=== PATIENT | female | born 1990 | race Caucasian/White ===

== ENCOUNTER → 2016-12-17 | Outpatient (REF) | payer OTHER, SELFPAY ==
[~2016-12-17] MED LIST: ALBU17IN INH; BREO1INH3 INH; VITA100067 PO
== END ==
LOC: M LAB REF 10:12
PROVIDERS: ATTEND Physician Assistant
DX: N39.0 Urinary tract infection, site not specified (principal)

== ENCOUNTER → 2017-05-03 | Outpatient (CLI) | payer BC ==
[2017-05-03 13:27] LABS: ALBUMIN 3.6 GM/DL (3.2-5.2); ALKALINE PHOSPHATASE 99 U/L (45-117); ALT/SGPT 41 U/L (12-78); AMYLASE 51 U/L (25-115); ANION GAP 11 MEQ/L (8-16); AST/SGOT 27 U/L (15-37); BILIRUBIN,TOTAL 0.3 MG/DL (0.2-1.0); BLOOD UREA NITROGEN 11 MG/DL (7-18); CALCIUM LEVEL 8.6 MG/DL (8.5-10.1); CARBON DIOXIDE LEVEL 23 MEQ/L (21-32); CHLORIDE LEVEL 107 MEQ/L (98-107); CREATININE FOR GFR 0.71 MG/DL (0.55-1.02); GLOMERULAR FILTRATION RATE > 60.0 (>60); GLUCOSE, FASTING 82 MG/DL (70-105); POTASSIUM SERUM 4.4 MEQ/L (3.5-5.1); SODIUM LEVEL 141 MEQ/L (136-145); TOTAL PROTEIN 7.2 GM/DL (6.4-8.2)
[2017-05-03 13:56] LABS: ADD MANUAL DIFFER YES; MEAN CORPUSCULAR HEMOGLOBIN 24.2 pg (27.0-33.0); MEAN CORPUSCULAR HGB CONC 31.6 g/dl (32.0-36.5); MEAN CORPUSCULAR VOLUME 76.6 fl (80.0-96.0); PLATELET COUNT, AUTOMATED 335 k/mm3 (150-450); RED CELL DISTRIBUTION WIDTH 15.6 % (11.5-14.5); WHITE BLOOD COUNT 4.9 K/mm3 (4.0-10.0)
[2017-05-03 14:23] LABS: ANISOCYTOSIS 1+; BASOPHILS 1 % (0-4); EOSINOPHILS 5 % (0-5)
== END ==
LOC: M SMT 09:27
PROVIDERS: ATTEND Physician Assistant Medical
DX: Z13.29 Encounter for screening for other suspected endocrine disorder (principal); R53.82 Chronic fatigue, unspecified; R10.13 Epigastric pain

== ENCOUNTER → 2017-05-24 | Outpatient (REF) | payer BC | LOC: M LAB REF 16:05 | PROVIDERS: ATTEND Family Medicine | DX: D48.5 Neoplasm of uncertain behavior of skin (principal) ==

== ENCOUNTER → 2017-09-30 | Outpatient (CLI) | payer BC ==
[2017-09-30 18:17] LABS: HCG, SERUM QUANTITATIVE 2660 MIU/ML
== END ==
LOC: M LAB 16:40
DX: O20.0 Threatened abortion (principal); Z3A.00 Weeks of gestation of pregnancy not specified
CPT/HCPCS: 84702

== ENCOUNTER → 2017-10-02 | Outpatient (CLI) | payer BC ==
[2017-10-02 18:47] LABS: HCG, SERUM QUANTITATIVE 5056 MIU/ML
== END ==
LOC: M LAB 16:20
DX: O20.0 Threatened abortion (principal)

== ENCOUNTER → 2017-10-19 | Outpatient (REF) | payer BC ==
[2017-10-19 18:29] LABS: INFLUENZA A AMPLIFICATION NEGATIVE (NEGATIVE); INFLUENZA B AMPLIFICATION POSITIVE (NEGATIVE)
== END ==
LOC: M LAB REF 17:22
DX: J11.1 Influenza due to unidentified influenza virus with other respiratory manifestations (principal)

== ENCOUNTER → 2017-10-23 | Outpatient (CLI) | payer BC ==
[2017-10-23 18:05] LABS: EOS # 0.1 10^3/uL (0.0-0.50); EOS % 1.6 % (0.0-3.0); HEMATOCRIT 42.9 % (36.0-47.0); IMMATURE GRANULOCYTE % 0.3 % (0-3.0); LYMPH # 1.1 10^3/uL (1.5-6.5); LYMPH % 28.4 % (24.0-44.0); MEAN CORPUSCULAR HEMOGLOBIN 26.7 pg (27.0-33.0); MEAN CORPUSCULAR HGB CONC 32.6 g/dl (32.0-36.5); MEAN CORPUSCULAR VOLUME 81.7 fl (80.0-96.0); MONO # 0.3 10^3/uL (0.0-0.8); NEUTROPHILS # 2.4 10^3/uL (1.8-7.7); NEUTROPHILS % 62.7 % (36.0-66.0); PLATELET COUNT, AUTOMATED 322 10^3/uL (150-450); RED BLOOD COUNT 5.25 10^6/uL (4.00-5.40); RED CELL DISTRIBUTION WIDTH 13.1 % (11.5-14.5); WHITE BLOOD COUNT 3.8 10^3/uL (4.0-10.0)
[2017-10-23 23:22] LABS: CHLAMYDIA DNA AMPLIFICATION NEGATIVE (NEGATIVE); GC DNA AMPLIFICATION NEGATIVE (NEGATIVE)
[2017-10-25 10:35] LABS: HBsAg Prenatal NEGATIVE (NEGATIVE)
[2017-10-25 10:58] LABS: HEPATITIS C VIRUS ABY INDEX 0.1 INDEX (<0.8)
[2017-10-25 10:59] LABS: HIV 1&2 SCREEN CENTAUR NEGATIVE (NEGATIVE)
[2017-10-25 12:14] LABS: RUBELLA IgG QUALITATIVE IMMUNE (IMMUNE)
== END ==
LOC: M SMT 13:53
DX: Z34.81 Encounter for supervision of other normal pregnancy, first trimester (principal); Z3A.08 8 weeks gestation of pregnancy
CPT/HCPCS: 86762

== ENCOUNTER → 2018-01-08 | Outpatient (CLI) | payer BC | LOC: M RAD 11:52 | DX: Z34.82 Encounter for supervision of other normal pregnancy, second trimester (principal) | CPT/HCPCS: 76811 ==

== ENCOUNTER → 2018-02-21 | Outpatient (CLI) | payer BC ==
[2018-02-21 17:13] LABS: HEMATOCRIT 36.8 % (36.0-47.0); HEMOGLOBIN 11.9 g/dl (12.0-15.5); MEAN CORPUSCULAR HEMOGLOBIN 27.9 pg (27.0-33.0); MEAN CORPUSCULAR HGB CONC 32.3 g/dl (32.0-36.5); MEAN CORPUSCULAR VOLUME 86.2 fl (80.0-96.0); PLATELET COUNT, AUTOMATED 302 10^3/uL (150-450); RED BLOOD COUNT 4.27 10^6/uL (4.00-5.40); RED CELL DISTRIBUTION WIDTH 13.7 % (11.5-14.5)
[2018-02-21 17:30] LABS: GLUCOSE CHALLENGE TEST 1 HOUR 119 MG/DL (LESS THAN 140)
[2018-02-24 08:45] LABS: ANTIBODY IDENTIFICATION 1 1
== END ==
LOC: M SMT 13:31
DX: Z34.82 Encounter for supervision of other normal pregnancy, second trimester (principal)
CPT/HCPCS: 82950

== ENCOUNTER → 2018-05-02 | Outpatient (REF) | payer BC, MEDICAID | LOC: M LAB REF 17:08 | DX: Z34.83 Encounter for supervision of other normal pregnancy, third trimester (principal); Z36.85 Encounter for antenatal screening for Streptococcus B | CPT/HCPCS: 87081 ==

== ENCOUNTER → 2018-05-13 | Outpatient (CLI) | payer MEDICAID | LOC: M SMT 09:09 | DX: O36 Maternal care for other fetal problems (principal); Z3A.37 37 weeks gestation of pregnancy | CPT/HCPCS: 36415 ==

== ENCOUNTER 2018-06-03 09:04 | Inpatient (IN) | payer OTHER, MEDICAID ==
[2018-06-03 11:58] LABS: HEMATOCRIT 37.2 % (36.0-47.0); HEMOGLOBIN 12.4 g/dl (12.0-15.5); MEAN CORPUSCULAR HEMOGLOBIN 27.6 pg (27.0-33.0); MEAN CORPUSCULAR HGB CONC 33.3 g/dl (32.0-36.5); MEAN CORPUSCULAR VOLUME 82.7 fl (80.0-96.0); PLATELET COUNT, AUTOMATED 285 10^3/uL (150-450); RED CELL DISTRIBUTION WIDTH 14.3 % (11.5-14.5); WHITE BLOOD COUNT 11.4 10^3/uL (4.0-10.0)
[2018-06-03] MEDS: LR 1,000 ML IV ×4 (12:33→21:34)
[2018-06-03] MEDS: OXYTOCIN DRIP 30 UNITS in APPROPRIATE DILUENT 1 EA IV (12:33)
[2018-06-03] MEDS ORDERED: FENTANYL 2MCG/ML ROPIVACAINE 0.2% IN 0.9% NACL 200ML IVBAG As Ordered (19:38)
[2018-06-03] MEDS ORDERED: EPIDURAL/PCA KEYS XX (21:00)
[2018-06-03] MEDS ORDERED: FENTANYL/ROPIVACAINE/NACL BAG 200 ML EPIDURAL (21:00)
[2018-06-03] MEDS ORDERED: EPIDURAL COMMENT XX (21:00)
[2018-06-03] MEDS ORDERED: ePHEDrine SULFATE 25 MG/5 ML(5MG/ML) SYRINGE IV (21:00)
[2018-06-03] MEDS ORDERED: NALOXONE INJ 0.4 MG/1 ML VIAL (J2310) IV (21:00)
[2018-06-03] MEDS ORDERED: ONDANSETRON 4MG/2ML VIAL (J2405) IV (21:00)
[2018-06-03] MEDS ORDERED: diphenhydrAMINE INJ 50MG/ML VIAL (J1200) IV (21:00)
[2018-06-03] MEDS ORDERED: REFRIGERATOR IV KEYS XX (21:00)
[2018-06-04] MEDS ORDERED: DOCUSATE SODIUM 100 MG CAP PO (07:30)
[2018-06-04] MEDS ORDERED: MEASLES,MUMPS,RUBELLA VACCINE INJ (MMR-II) (90707) SC (07:30)
[2018-06-04] MEDS ORDERED: MOM 30ML SUSPENSION UDC PO (07:30)
[2018-06-04] MEDS ORDERED: METHYLERGONOVINE MALEATE 0.2 MG TAB PO (07:30)
[2018-06-04] MEDS ORDERED: IBUPROFEN 800 MG TAB PO (07:30)
[2018-06-04] MEDS ORDERED: RHOGAM 300 MCG (1500 IU) INJ (J2790) IM (07:30)
[2018-06-04] MEDS ORDERED: DIBUCAINE 1% OINTMENT 30GM TOP (07:30)
[2018-06-04] MEDS: OXYTOCIN DRIP 30 UNITS in APPROPRIATE DILUENT 1 EA IV (07:49)
[2018-06-04] MEDS: ACETAMINOPHEN 500 MG TAB PO ×2 (08:03→21:46)
[2018-06-04] MEDS: PRENATAL VITAMINS CHEWABLE TABLET PO (08:03)
[2018-06-05] MEDS: PRENATAL VITAMINS CHEWABLE TABLET PO (09:52)
== END 2018-06-05 11:45 | disposition home or self-care (01) | DRG 560 ==
LOC: M LDO 09:04 → M OBS 06-04 03:03 → M LDI 10:42
PROVIDERS: Obstetrics & Gynecology
PROC: 3E033VJ Introduction of Other Hormone into Peripheral Vein, Percutaneous Approach (ICD-10-PCS; 2018-06-03)
PROC: 10E0XZZ Delivery of Products of Conception, External Approach (ICD-10-PCS; principal; 2018-06-04)
PROC: 0HQ9XZZ Repair Perineum Skin, External Approach (ICD-10-PCS; 2018-06-04)
DX: O48.0 Post-term pregnancy (principal); J45.909 Unspecified asthma, uncomplicated; Z37.0 Single live birth; Z3A.40 40 weeks gestation of pregnancy; O99.52 Diseases of the respiratory system complicating childbirth; Z91.040 Latex allergy status; Z91.018 Allergy to other foods; Z91.010 Allergy to peanuts; O70.0 First degree perineal laceration during delivery

== ENCOUNTER → 2018-12-12 | Outpatient (REF) | payer OTHER ==
[~2018-12-12] MED LIST changes: +ADV250INH INH; +FERR325T3 PO; +IBUP-1114 PO; +MAPA500T2 PO; +PRENTAB9 PO; +VITA200015 PO
== END ==
LOC: M LAB REF 08:48
PROVIDERS: ATTEND Physician Assistant
DX: D48.5 Neoplasm of uncertain behavior of skin (principal)

== ENCOUNTER → 2019-03-01 | Outpatient (REF) | payer OTHER | LOC: M LAB REF 09:54 | PROVIDERS: ATTEND Physician Assistant Medical | DX: B02.9 Zoster without complications (principal) ==

== ENCOUNTER 2019-08-26 19:19 | Emergency (ER) | payer BC, OTHER ==
[~2019-08-26] VITALS: Ht 170.2 cm; Wt 99.5 kg
[2019-08-26] MEDS ORDERED: FLUO20TA35 PO (19:27)
[2019-08-26] MEDS ORDERED: SYMB16INH INH (19:27)
[2019-08-26] MEDS ORDERED: NS 1,000 ML IV ONE (20:15)
[2019-08-26] MEDS ORDERED: PANTOPRAZOLE 40MG INJ (PROTONIX) (C9113) IV ONE (20:15)
[2019-08-26] MEDS ORDERED: ONDANSETRON 4MG/2ML VIAL (J2405) IV ONE (20:15)
[2019-08-26 20:29] LABS: BASO % 0.4 % (0.0-1.0); EOS # 0.7 10^3/uL (0.0-0.5); EOS % 9.2 % (0.0-3.0); HEMATOCRIT 40.7 % (36.0-47.0); HEMOGLOBIN 12.8 g/dl (12.0-15.5); LYMPH # 1.4 10^3/uL (1.5-5.0); MEAN CORPUSCULAR HEMOGLOBIN 25.5 pg (27.0-33.0); MEAN CORPUSCULAR HGB CONC 31.4 g/dl (32.0-36.5); MEAN CORPUSCULAR VOLUME 81.1 fl (80.0-96.0); MONO # 0.5 10^3/uL (0.0-0.8); MONO % 6.1 % (0.0-5.0); NEUTROPHILS # 4.8 10^3/uL (1.5-8.5); PLATELET COUNT, AUTOMATED 381 10^3/uL (150-450); RED BLOOD COUNT 5.02 10^6/uL (4.00-5.40); WHITE BLOOD COUNT 7.4 10^3/uL (4.0-10.0)
[2019-08-26 20:58] LABS: ALBUMIN 3.4 GM/DL (3.2-5.2); ALT/SGPT 50 U/L (12-78); BILIRUBIN,DIRECT 0.1 MG/DL (0.0-0.2); BILIRUBIN,TOTAL 0.3 MG/DL (0.2-1.0); BLOOD UREA NITROGEN 10 MG/DL (7-18); CALCIUM LEVEL 8.8 MG/DL (8.5-10.1); CARBON DIOXIDE LEVEL 25 MEQ/L (21-32); CHLORIDE LEVEL 108 MEQ/L (98-107); CREATININE FOR GFR 0.71 MG/DL (0.55-1.30); GLOMERULAR FILTRATION RATE > 60.0 (>60); GLUCOSE, FASTING 113 MG/DL (70-100); LIPASE 426 U/L (73-393); SODIUM LEVEL 140 MEQ/L (136-145); TOTAL PROTEIN 6.9 GM/DL (6.4-8.2)
--- NOTE | 2019-08-26 22:49 | REPVR ---
PROCEDURE INFORMATION: Exam: US Abdomen Limited, Right Upper Quadrant Exam date and time: 08/26/2019 10:10 PM Age: 29 years old Clinical indication: Abdominal pain; Additional info: Ruq/epigastric pain TECHNIQUE: Imaging protocol: Real-time ultrasound of the abdomen with image documentation. Examination was focused on the right upper quadrant. COMPARISON: No relevant prior studies available. FINDINGS: Liver: Increased hepatic parenchymal echogenicity with no appreciable mass in the imaged portions of the liver. Gallbladder: No cholelithiasis. No gallbladder wall thickening or pericholecystic fluid. No sonographic Malik's sign. Common bile duct: The common bile duct measures 3 mm. Pancreas: The imaged pancreas is unremarkable. Right kidney: The right kidney measures 11 cm. No hydronephrosis. IMPRESSION: 1. No cholelithiasis or evidence of cholecystitis. 2. Echogenic hepatic parenchyma likely representing steatosis, versus fibrosis or hepatitis. Electronically signed by: Ashish Senior On 08/26/2019 22:48:53 PM
[2019-08-26] MEDS ORDERED: CARA1TAB6 PO (23:19)
[2019-08-26] MEDS ORDERED: PROT1TAB2 PO (23:19)
[2019-08-26 23:25] VITALS: BP 123/74
[2019-08-26] MEDS ORDERED: SUCRALFATE 1 GM TAB PO ONE (23:30)
[2019-08-26] MEDS ORDERED: KETOROLAC 30 MG/ML VIAL (J1885) IV ONE (23:30)
== END 2019-08-26 23:45 | disposition home or self-care (01) ==
LOC: M ED 19:19
DX: R10.13 Epigastric pain (principal); K29.70 Gastritis, unspecified, without bleeding; R93.2 Abnormal findings on diagnostic imaging of liver and biliary tract; M54.5 Low back pain; Z91.018 Allergy to other foods; Z91.040 Latex allergy status; Z79.51 Long term (current) use of inhaled steroids; Z79.899 Other long term (current) drug therapy
CPT/HCPCS: 76705; 80048; 80076; 83690; 84702; 85025; 96361; 96374; 96375; 99284; C9113; J1885; J2405

== ENCOUNTER → 2020-01-13 | Outpatient (REF) | payer BC ==
[~2020-01-13] MED LIST changes: +CARA1TAB6 PO; +FLUO20TA35 PO; +PROT1TAB2 PO; +SYMB16INH INH
== END ==
LOC: M LAB REF 17:20
PROVIDERS: ATTEND Family Medicine
DX: D22.5 Melanocytic nevi of trunk (principal)

== ENCOUNTER → 2020-01-25 | Outpatient (REF) | payer BC | LOC: M LAB REF 08:27 | PROVIDERS: ATTEND Family Medicine | DX: D22.5 Melanocytic nevi of trunk (principal) ==

== ENCOUNTER → 2021-05-15 | Outpatient (CLI) | payer BC ==
[2021-05-15 15:58] LABS: BASO # 0.1 10^3/uL (0.0-0.2); EOS # 1.2 10^3/uL (0.0-0.5); EOS % 18.6 % (0.0-3.0); HEMATOCRIT 39.8 % (36.0-47.0); HEMOGLOBIN 12.7 g/dl (12.0-15.5); LYMPH # 1.9 10^3/uL (1.5-5.0); LYMPH % 30.7 % (24.0-44.0); MEAN CORPUSCULAR HEMOGLOBIN 25.9 pg (27.0-33.0); MEAN CORPUSCULAR HGB CONC 31.9 g/dl (32.0-36.5); MEAN CORPUSCULAR VOLUME 81.1 fl (80.0-96.0); MONO # 0.6 10^3/uL (0.0-0.8); MONO % 9.5 % (2.0-8.0); NEUTROPHILS # 2.5 10^3/uL (1.5-8.5); NEUTROPHILS % 39.9 % (36.0-66.0); PLATELET COUNT, AUTOMATED 394 10^3/uL (150-450); RED BLOOD COUNT 4.91 10^6/uL (4.00-5.40); WHITE BLOOD COUNT 6.2 10^3/uL (4.0-10.0)
[2021-05-15 16:12] LABS: HEMOGLOBIN A1c 5.2 %
[2021-05-15 16:30] LABS: ALBUMIN 3.5 GM/DL (3.2-5.2); ALT/SGPT 66 U/L (12-78); BILIRUBIN,TOTAL 0.9 MG/DL (0.2-1.0); BLOOD UREA NITROGEN 10 MG/DL (7-18); CALCIUM LEVEL 8.9 MG/DL (8.5-10.1); CARBON DIOXIDE LEVEL 25 MEQ/L (21-32); CHLORIDE LEVEL 106 MEQ/L (98-107); FREE T4 1.18 NG/DL (0.76-1.46); GLOMERULAR FILTRATION RATE > 60.0 (>60); GLUCOSE, FASTING 77 MG/DL (70-100); POTASSIUM SERUM 4.2 MEQ/L (3.5-5.1); SODIUM LEVEL 139 MEQ/L (136-145); TOTAL 25(OH) VITAMIN D 23.2 NG/ML (30.0-100.0); TOTAL PROTEIN 7.2 GM/DL (6.4-8.2)
== END ==
LOC: M PLALAB 12:16
PROVIDERS: ATTEND Family Medicine
DX: Z13.29 Encounter for screening for other suspected endocrine disorder (principal)

== ENCOUNTER → 2022-04-09 | Outpatient (CLI) | payer OTHER ==
[2022-04-09 12:49] LABS: BASO # 0.1 10^3/uL (0.0-0.2); BASO % 0.6 % (0.0-1.0); EOS # 2.5 10^3/uL (0.0-0.5); EOSINOPHIL,TOTAL CALCULATED 2500 mm3 (0-740); HEMATOCRIT 41.9 % (36.0-47.0); HEMOGLOBIN 13.1 g/dl (12.0-15.5); LYMPH # 1.6 10^3/uL (1.5-5.0); MEAN CORPUSCULAR HEMOGLOBIN 26.3 pg (27.0-33.0); MEAN CORPUSCULAR HGB CONC 31.3 g/dl (32.0-36.5); MEAN CORPUSCULAR VOLUME 84.1 fl (80.0-96.0); MONO # 0.6 10^3/uL (0.0-0.8); MONO % 7.7 % (2.0-8.0); NEUTROPHILS # 3.4 10^3/uL (1.5-8.5); NEUTROPHILS % 41.5 % (36.0-66.0); PLATELET COUNT, AUTOMATED 360 10^3/uL (150-450); RED BLOOD COUNT 4.98 10^6/uL (4.00-5.40); WHITE BLOOD COUNT 8.2 10^3/uL (4.0-10.0)
[2022-04-09 13:31] LABS: EOS % 30.8 % (0.0-3.0)
[2022-04-09 13:47] LABS: ALBUMIN 3.7 GM/DL (3.2-5.2); ALT/SGPT 53 U/L (12-78); BILIRUBIN,TOTAL 0.7 MG/DL (0.2-1.0); BLOOD UREA NITROGEN 15 MG/DL (7-18); CALCIUM LEVEL 9.5 MG/DL (8.5-10.1); CARBON DIOXIDE LEVEL 25 MEQ/L (21-32); CHLORIDE LEVEL 107 MEQ/L (98-107); CREATININE FOR GFR 0.81 MG/DL (0.55-1.30); GLOMERULAR FILTRATION RATE > 60.0 (>60); GLUCOSE, FASTING 83 MG/DL (70-100); POTASSIUM SERUM 4.6 MEQ/L (3.5-5.1); SODIUM LEVEL 136 MEQ/L (136-145); TOTAL PROTEIN 7.5 GM/DL (6.4-8.2)
== END ==
LOC: M PLALAB 10:56
PROVIDERS: ATTEND Physician Assistant
DX: J82.83 Eosinophilic asthma (principal)

== ENCOUNTER → 2022-06-22 | Outpatient (CLI) | payer OTHER ==
[2022-06-22 15:50] LABS: BASO % 0.7 % (0.0-1.0); EOS % 16.4 % (0.0-3.0); HEMATOCRIT 44.2 % (36.0-47.0); HEMOGLOBIN 13.9 g/dl (12.0-15.5); LYMPH # 1.6 10^3/uL (1.5-5.0); LYMPH % 25.7 % (24.0-44.0); MEAN CORPUSCULAR HEMOGLOBIN 26.6 pg (27.0-33.0); MEAN CORPUSCULAR HGB CONC 31.4 g/dl (32.0-36.5); MEAN CORPUSCULAR VOLUME 84.5 fl (80.0-96.0); MONO # 0.4 10^3/uL (0.0-0.8); MONO % 6.3 % (2.0-8.0); NEUTROPHILS # 3.1 10^3/uL (1.5-8.5); NEUTROPHILS % 50.6 % (36.0-66.0); PLATELET COUNT, AUTOMATED 380 10^3/uL (150-450); RED BLOOD COUNT 5.23 10^6/uL (4.00-5.40)
[2022-06-22 16:17] LABS: RHEUMATOID FACTOR QUANT < 10.0 IU/ML (<15.0)
[2022-06-22 16:22] LABS: CPK CREATINE PHOSPHOKINASE 434 U/L (26-192); MB/CK RELATIVE INDEX 0.23 (< OR =4)
[2022-06-22 17:40] LABS: HIV 1&2 SCREEN CENTAUR NEGATIVE (NEGATIVE)
[2022-06-25 12:56] LABS: VITAMIN B12 LEVEL 476 PG/ML (247-911)
== END ==
LOC: M PLALAB 11:05
PROVIDERS: ATTEND Allergy & Immunology Allergy
DX: D72.10 Eosinophilia, unspecified (principal); J45.51 Severe persistent asthma with (acute) exacerbation

== ENCOUNTER 2022-07-03 19:01 | Emergency (ER) | payer OTHER ==
[~2022-07-03] VITALS: Ht 172.7 cm; Wt 95.5 kg
[2022-07-03 19:02] VITALS: BP 116/74
[2022-07-04] MEDS ORDERED: ACET1TAB37 PO (13:38)
[2022-07-04] MEDS ORDERED: METH-1164 PO (16:14)
== END 2022-07-03 22:17 | disposition left against medical advice (07) ==
LOC: M ED 19:01
DX: Z53.21 Procedure and treatment not carried out due to patient leaving prior to being seen by health care provider (principal)

== ENCOUNTER 2022-07-04 13:28 | Emergency (ER) | payer OTHER ==
[~2022-07-04] VITALS: Ht 172.7 cm; Wt 106.2 kg
[2022-07-04] MEDS ORDERED: ACET1TAB37 PO (13:38)
[2022-07-04] MEDS ORDERED: KETOROLAC 60MG 2ML VIAL IM ONE (15:30)
[2022-07-04] MEDS ORDERED: METH-1164 PO (16:14)
[2022-07-04 16:23] VITALS: BP 140/90
== END 2022-07-04 16:58 | disposition home or self-care (01) ==
LOC: M ED 13:28
DX: M54.50 Low back pain, unspecified (principal); J45.909 Unspecified asthma, uncomplicated; F41.9 Anxiety disorder, unspecified; K21.9 Gastro-esophageal reflux disease without esophagitis; F32.A Depression, unspecified; Z91.010 Allergy to peanuts; Z91.040 Latex allergy status; Z91.018 Allergy to other foods; Z79.51 Long term (current) use of inhaled steroids; Z79.899 Other long term (current) drug therapy
CPT/HCPCS: 72110; 96372; 99283; J1885

== ENCOUNTER → 2022-07-21 | Outpatient (CLI) | payer OTHER ==
[~2022-07-21] MED LIST changes: +ACET1TAB37 PO; +METH-1164 PO
== END ==
LOC: M RAD 08:58
PROVIDERS: ATTEND Physician Assistant
DX: M47.26 Other spondylosis with radiculopathy, lumbar region (principal)

== ENCOUNTER → 2024-04-24 | Outpatient (CLI) | payer BC ==
[2024-04-24 10:48] LABS: BASO % 0.4 % (0.0-1.0); EOS # 0.4 10^3/uL (0.0-0.5); EOS % 4.8 % (0.0-3.0); HEMATOCRIT 40.8 % (36.0-47.0); LYMPH # 3.9 10^3/uL (1.5-5.0); LYMPH % 42.8 % (24.0-44.0); MEAN CORPUSCULAR HEMOGLOBIN 26.8 pg (27.0-33.0); MEAN CORPUSCULAR HGB CONC 31.9 g/dl (32.0-36.5); MEAN CORPUSCULAR VOLUME 84.1 fl (80.0-96.0); MONO # 0.7 10^3/uL (0.0-0.8); MONO % 7.3 % (2.0-8.0); NEUTROPHILS % 44.1 % (36.0-66.0); PLATELET COUNT, AUTOMATED 387 10^3/uL (150-450); RED BLOOD COUNT 4.85 10^6/uL (4.00-5.40)
[2024-04-24 10:55] LABS: IRON (FE) 30 UG/DL (50-170); PERCENT SATURATION 8.7 % (13.2-45.0); TOTAL IRON BINDING CAPACITY 344 UG/DL (250-425)
[2024-04-24 10:56] LABS: ALBUMIN 3.1 G/DL (3.2-5.2); ALKALINE PHOSPHATASE 65 U/L (46-116); ALT/SGPT 23 U/L (7.0-40); AST/SGOT 9 U/L (<34); BILIRUBIN,TOTAL 0.2 MG/DL (0.3-1.2); BLOOD UREA NITROGEN 9 MG/DL (9-23); CALCIUM LEVEL 8.7 MG/DL (8.5-10.1); CARBON DIOXIDE LEVEL 28 MMOL/L (20-31); CHLORIDE LEVEL 109 MMOL/L (98-107); CHOLESTEROL LEVEL 166 MG/DL (<200); CHOLESTEROL RISK RATIO 3.48 (<5); CREATININE FOR GFR 0.76 MG/DL (0.55-1.30); GLOMERULAR FILTRATION RATE > 60.0 (>60); GLUCOSE, FASTING 89 MG/DL (60-100); HDL CHOLESTEROL 47.7 MG/DL (>40); LDL CHOLESTEROL 90.7 MG/DL (<100); NON-HDL-C 118.3 MG/DL; POTASSIUM SERUM 3.9 MMOL/L (3.5-5.1); SODIUM LEVEL 141 MMOL/L (136-145); TOTAL PROTEIN 6.3 G/DL (5.7-8.2); TRIGLYCERIDES LEVEL 138 MG/DL (<150); VITAMIN B12 LEVEL 325 PG/ML (211-911)
[2024-04-24 10:57] LABS: FREE T4 1.38 NG/DL (0.89-1.76)
[2024-04-24 11:04] LABS: FOLATE 9.6 NG/ML (>5.4)
[2024-04-24 11:12] LABS: HEMOGLOBIN A1c 5.2 % (4.0-6.0)
== END ==
LOC: M PLALAB 08:25
PROVIDERS: ATTEND Family Medicine
DX: Z13.220 Encounter for screening for lipoid disorders (principal); Z13.29 Encounter for screening for other suspected endocrine disorder; Z13.0 Encounter for screening for diseases of the blood and blood-forming organs and certain disorders involving the immune mechanism